=== PATIENT | male | born 1950 | race Caucasian/White ===

== ENCOUNTER 2018-06-24 08:21 | Day surgery (SDC) | payer MEDICARE, OTHER ==
[~2018-06-24 08:21] MED LIST: PROPOFOL INJ 200 MG/20 ML VIAL IV ONE
[2018-06-24 10:54] VITALS: BP 134/74
--- NOTE | 2018-06-24 12:45 | Operative Report ---
Operative Report DATE OF SURGERY: 06/24/18 Operative Report: The risks, benefits and alternatives of the procedure including the risk of bleeding, perforation requiring surgery are explained to the patient in detail and informed consent is obtained. Patient is taken back to the endoscopy suite and placed in a left, lateral decubital position. Timeout was called. Propofol medication is administered. A rectal examination is done which did not reveal any masses, tears or fissures. An Olympus videoscope is inserted into the patient's rectum. The scope was then carefully advanced all the way to the cecum. The cecum was identified by the usual anatomical landmarks including the ileocecal valve as well as the appendiceal office. Photodocumentation is obtained. The scope was then sequentially pulled back via the various segments of the colon including the ascending colon, hepatic flexure, transverse colon, splenic flexure, descending colon and finally in to the rectosigmoid portions of the colon. Retroflexion maneuvers performed. PREOPERATIVE DIAGNOSIS: Personal history of polyp POSTOPERATIVE DIAGNOSIS: Sessile polyp noted at the junction of the descending colon and the splenic flexure which was removed via snare polypectomy. Pedunculated polyp noted in the sigmoid area that was removed via snare polypectomy. 2 rectal polyps which were removed via snare polypectomy. All tissue was retrieved and placed in separate containers. Internal and external hemorrhoids OPERATION: Colonoscopy with snare polypectomy SURGEON: JUDIE HUNTER ANESTHESIA: LMAC TISSUE REMOVED OR ALTERED: As noted above. COMPLICATIONS: None. ESTIMATED BLOOD LOSS: None. INTRAOPERATIVE FINDINGS: As noted above. PROCEDURE: Patient tolerated the procedure well. No immediate postprocedure complications are noted. Patient discharged in good condition. Discharge date 06/25/2018. Discharge diet: Regular. Discharge diet: Regular. Discharge activity: Regular. 2-3-week follow-up to discuss findings. 3-year surveillance colonoscopy. Patient is instructed call the office or proceed to the emergency room should there be any further proximal questions. Wait on the pathology.
== END 2018-06-24 10:35 | disposition home or self-care (01) ==
LOC: END 08:21
PROVIDERS: ATTEND Internal Medicine Gastroenterology
DX: Z12.11 Encounter for screening for malignant neoplasm of colon (principal); K64.8 Other hemorrhoids; K64.4 Residual hemorrhoidal skin tags; Z86.010 Personal history of colon polyps; I10 Essential (primary) hypertension; I20.9 Angina pectoris, unspecified; I25.2 Old myocardial infarction; Z88.8 Allergy status to other drugs, medicaments and biological substances; Z87.891 Personal history of nicotine dependence
CPT/HCPCS: 45385; 88305 ×2; J2704; 811